=== PATIENT | male | born 1980 | race Caucasian/White ===

== ENCOUNTER 2016-09-11 07:41 | Day surgery (SDC) | payer BC ==
[~2016-09-11] VITALS: Ht 177.8 cm; Wt 112.7 kg
[~2016-09-11 07:41] MED LIST: CLON-412 PO; IBUP400T22 PO; LORA10TA3 PO; OLAN20TA7 PO; RTPRO HHN
[2016-09-11 08:12] VITALS: Ht 177.8 cm; Wt 112.7 kg
[2016-09-11] MEDS ORDERED: INSOMNIA MED (08:18)
[2016-09-11] MEDS ORDERED: ABILIFY (08:18)
[2016-09-11] MEDS ORDERED: BENADRYL (08:18)
[2016-09-11 08:30] VITALS: BP 126/73; PULSE 65; RESP 16
[2016-09-11] MEDS ORDERED: FENTAnyl 50 MCG/ML VIAL ONE (08:31)
[2016-09-11] MEDS ORDERED: ONDANSETRON 4 MG INJ ONE (08:31)
[2016-09-11] MEDS ORDERED: PROPOFOL 60 ML ONE (08:31)
[2016-09-11] MEDS ORDERED: LIDOCAINE 100 MG SYRINGE ONE (08:31)
[2016-09-11 10:16] VITALS: BP 127/77; RESP 20
--- NOTE | 2016-09-11 17:18 | RADRPT ---
Vent Rate: 62 bpm RR Interval: 0 msec ID Interval: 202 msec QRS Duration: 114 msec QT Interval: 404 msec QTC Interval: 410 msec P-R-T [place]: 52 - 68 - 33 degrees Normal sinus rhythm Nonspecific ST abnormality Abnormal ECG Electronically Signed By: Amadeo Diane [id number]
--- NOTE | 2016-09-21 05:53 | GILP ---
DATE OF PROCEDURE: PROCEDURE PERFORMED: Esophagogastroduodenoscopy with biopsy and colonoscopy with biopsy. INDICATION: A 35-year-old male undergoing this procedure for heartburn, despite taking PPI and weight loss and colonoscopy for rectal bleeding and weight loss and diarrhea. The risks of the procedure, related complications and anesthetic risks, alternatives discussed, informed consent was obtained. DESCRIPTION OF PROCEDURE: Patient was brought to the GI lab, sedated by Dr. Jean. After optimal sedation, scope was passed with much resistance into the esophagus, which was grossly within normal limits in the proximal and mid part; however, in the distal part he had 2-3 linear ulceration about 2 cm in length. The Z-line was at 38 cm, which was normal and regular. Stomach mucosa revealed gastritis and there was a umbilicated polyp 1.5 cm in diameter. Appeared to be like a pancreatic mass. Multiple biopsies obtained. The duodenum, 1st and 2nd part appeared normal. Retroflexion was then done. No growth was seen. Biopsies obtained from the stomach to rule out H pylori infection and the scope was removed with good patient tolerance. IMPRESSION: 1. Superficial esophageal ulceration, linear in fashion, Mcintosh class C. 2. Gastritis, more severe in the antrum. 3. Polypoid lesion in the antrum with umbilication, rule out pancreatic mass. 4. Normal duodenum. PLAN: Review the histopathology. COLONOSCOPY: Patient was turned around. Scope was passed with much resistance into rectum. Advanced through sigmoid, descending, transverse colon, all the way into cecum and finally into terminal ileum. Terminal ileum was normal. The rest of the colon appeared normal. However, up to 10-15 cm patient had proctitis, 3-4 biopsies obtained. Also had small hemorrhoids. IMPRESSION: 1. Proctitis, otherwise negative into the cecum. 2. Normal terminal ileum. 3. Clarity and cleanliness were good. 4. hemorrhoids. PLAN: [place] suppository. We will review the histopathology. Dictated By: Gino Londono MD /tad/montse /Document#: [id number] CC: Gino Londono MD;*End*
== END 2016-09-11 10:49 | disposition home or self-care (01) ==
LOC: GIL 07:41
PROVIDERS: ATTEND Internal Medicine Gastroenterology
DX: K29.50 Unspecified chronic gastritis without bleeding (principal); K62.89 Other specified diseases of anus and rectum; K64.9 Unspecified hemorrhoids; F20.9 Schizophrenia, unspecified
CPT/HCPCS: 43239; 45378; 88305; 88312; 93005; J2001; J2405; J3010; Z7610

== ENCOUNTER 2016-12-04 16:58 | Emergency (ER) | END 2016-12-04 21:18 | disposition home or self-care (01) | DX: S60.221A Contusion of right hand, initial encounter (principal); X58.XXXA Exposure to other specified factors, initial encounter; Y92.9 Unspecified place or not applicable | CPT/HCPCS: 73130; Z7502 ==

== ENCOUNTER 2018-05-21 15:12 | Emergency (ER) | payer SELFPAY ==
[~2018-05-21] VITALS: Ht 165.1 cm; Wt 92.0 kg
[~2018-05-21 15:12] MED LIST changes: +ABILIFY; +BENADRYL; -CLON-412 PO; +IBUP-1542 PO; -IBUP400T22 PO; +INSOMNIA MED; -LORA10TA3 PO; -OLAN20TA7 PO; -RTPRO HHN; +TRAM50TA2 PO
[2018-05-21 15:56] VITALS: BP 131/69; PULSE 68; RESP 18; Ht 165.1 cm; Wt 92.0 kg
== END 2018-05-21 19:50 | disposition left against medical advice (07) ==
LOC: FTE 15:12
DX: Z53.21 Procedure and treatment not carried out due to patient leaving prior to being seen by health care provider (principal)